=== PATIENT | male | born 1985 | race Two or more races ===

== ENCOUNTER 2024-11-18 19:32 | Emergency (ER) | payer MEDICAID, SELFPAY ==
[2024-11-18 19:34] VITALS: BMI 29.0
[2024-11-18 19:53] VITALS: BP 145/89; PULSE 103; RESP 20; TEMP 37; O2SAT 98
--- NOTE | 2024-11-18 19:58 | XR_ITS ---
Examination: CT brain head without contrast. 2-D sagittal coronal reconstructions Date and time of exam:November 18, 20242007 hrs. Indications: Facial numbness blurred vision beginning 3 days ago CTDI: vol (mGy):53.9 DLP: (mGycm):1048 Technique: Multiple CT axial sections of the brain have been obtained, 5 mm slice thickness. Contrast has not been administered. 2-D sagittal, coronal reconstructions have been obtained Low dose protocols were performed. One or more of the following dose reduction techniques were used; automated exposure control, adjustment of the mA and/or KV according to patient size, use of iterative reconstruction technique. Findings: No significant ventricular enlargement. Intra-axial or extra-axial hemorrhage density is not seen. No mass effect or midline shift Basal cisterns are not remarkable. Fourth ventricle is midline. Cranial vault intact. Impression: Negative for acute hemorrhage, mass effect or midline shift As clinically warranted, brain MRI follow-up would best assess for demyelinating disease, acute ischemic change
--- NOTE | 2024-11-18 20:05 | EDNOTE_ITS ---
ED Eye Problem RME/HPI General Chief complaint: Eye Problems Stated complaint: LEFT EYE BURNING X2 DAYS, LEFT SIDE FACE NUMB Time Seen by Provider: 11/18/24 20:00 Source: patient Arrival date/time: 11/18/24 19:32 39-year-old male with no known medical history presents to the emergency room with a chief complaint of left eye burning, left eye numbness, left facial numbness x 2 days. Mode of arrival: ambulatory Limitations: no limitations Related Data Previous Rx's ?Medication ?Instructions ?Recorded cephalexin 500 mg capsule (Keflex) 2 cap PO BID Infection #28 caps 11/16/17 ibuprofen 600 mg tablet 1 tab PO Q8HR PRN pain #30 tabs 11/16/17 ibuprofen 800 mg tablet 800 mg PO TID PRN pain #30 tabs 04/05/21 cyclobenzaprine 10 mg tablet 10 mg PO TID PRN muscle spasm #30 03/10/23 tabs dexamethasone 6 mg tablet 6 mg PO QDAY #7 tabs 03/10/23 ibuprofen 600 mg tablet 600 mg PO TID PRN pain #30 tabs 03/10/23 dextran 70-hypromellose eye drops 1 drp ophthalmic (eye) Q60M PRN 11/18/24 in a dropperette (Artificial Tears dry eye(s) #32 ea (PF) drops in a dropperette) prednisone 20 mg tablet 80 mg PO QDAY 6 days #24 tabs 11/18/24 valacyclovir 500 mg tablet 1,000 mg (2 x 500 mg) PO TID 7 11/18/24 days #42 tabs Allergies Allergy/AdvReac Type Severity Reaction Status Date / Time No Known Allergies Allergy Verified 04/05/21 09:33 ED Exam General Limitations: Present no limitations Course Quality Measures none Orders Category Date Time Status CT head/brain wo con Stat Exams 11/18/24 19:58 Completed Artificial Tears Med 11/18/24 21:14 Discontinued See Dose Instructions LEFT EYE X1 ONE predniSONE Med 11/18/24 21:06 Discontinued 80 mg PO X1 ONE Vital Signs Vital signs: Vital Signs Temperature 98.6 F 11/18/24 19:53 Pulse Rate 103 H 11/18/24 19:53 Respiratory Rate 20 11/18/24 19:53 Blood Pressure 145/89 H 11/18/24 19:53 Pulse Oximetry (%) 98 11/18/24 19:53 Oxygen Delivery Method Room Air 11/18/24 19:53 Eye MDM Narrative MDM Narrative:: 39-year-old male with no known medical history presents to the emergency room with a chief complaint of left eye burning, left eye numbness, left facial numbness x 2 days. Clinically the patient appears nontoxic in no apparent distress. Physical examination shows a normal neurological exam. Pupils are PERRLA EOMs are intact the patient is a GCS of 15 alert and oriented the patient is only having numbness to his eyes and face there is no numbness or deficits to any lower extremity or upper extremity. Physical examination shows left-sided facial droop. The patient is having difficulty being able to wrinkle the forehead on the affected side. When the patient blinks his left eye does not fully close. The patient has a nonsymmetric smile and is barely able to pucker his lips. Patient denies any taste disturbances or ear pain. Using the House- Brackman scale the patient is given a grade 2 mild severity. 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 A CT of the head and brain was completed and was negative for any acute hemorrhage mass effect or midline shift steroids were given as well as antivirals and the patient was educated to follow-up with his primary care provider and return to the emergency room for any evidence of worsening signs or symptoms Patient data External records reviewed:: [facility] previous records Clinical information provided by:: patient Social determinants that could affect healthcare access:: none Patient has the following chronic illnesses:: No chronic illness How is presenting disease/condition affected by chronic disease/condition?: no chronic disease Evaluation data The following diagnostics were reviewed and interpreted by me:: lab results and radiology exam(s) Lab and/or radiology exams considered but not ordered:: Labs and radiology exams considered and ordered Interpretation Summary: CT head and brain-Findings: No significant ventricular enlargement. Intra-axial or extra-axial hemorrhage density is not seen. No mass effect or midline shift Basal cisterns are not remarkable. Fourth ventricle is midline. Cranial vault intact. Impression: Negative for acute hemorrhage, mass effect or midline shift As clinically warranted, brain MRI follow-up would best assess for demyelinating disease, acute ischemic change Medications / Prescriptions Medications or Prescriptions considered but not ordered:: Medication given Medication administrations:: Medication Administration History Discontinued Medications Artificial Tears (Artificial Tears 225 Drop/15 Ml Btl) 0 drop LEFT EYE X1 ONE Stop: 11/18/24 21:15 Last Admin: 11/18/24 21:26 Dose: 1 drop Documented By: OA Prednisone (Prednisone 20 Mg Tablet) 80 mg PO X1 ONE Stop: 11/18/24 21:07 Last Admin: 11/18/24 21:27 Dose: 80 mg Documented By: OA Medication given Consultations Consultation(s) initiated? (list below): No Diagnosis Eye Problem Differential Diagnosis: subconjunctival hemorrhage and other (Argueta's palsy) Most likely diagnosis given after review of the tests above:: Argueta's palsy Admission Indicated Admission indicated?: not indicated Admission Request Was there a request for admission?: No Disposition Plan Disposition Plan: Discharge Discharge Attestation Discharge Attestation: The patient and all family members were given an opportunity to ask questions and understood the discharge instructions. Discharge instructions specifically effects, indications for sooner follow up or return to the emergency department, and the expected course of current diagnosis. Patient condition: Stable Discharge Plan Plan Patient Disposition: HOME (Self Care) Disposition Comment: stable Prescriptions/Referrals Prescriptions/Med Rec: New prednisone 20 mg tablet 80 mg PO QDAY 6 Days Qty: 24 0RF Taper: Prednisone Taper 20 mg DAILY for 2 Days and 0 Hour 10 mg DAILY for 2 Days and 0 Hour 5 mg DAILY for 7 Days and 0 Hour valacyclovir 500 mg tablet 1,000 mg PO TID 7 Days Qty: 42 0RF Artificial Tears (PF) Dropperette 1 drp ophthalmic (eye) Q60M PRN (Reason: dry eye(s)) Qty: 32 0RF No Action cephalexin [Keflex] 500 MG capsule 2 cap PO BID Qty: 28 0RF Rx Instructions: use for 7 days ibuprofen 600 MG tablet 1 tab PO Q8HR PRN (Reason: pain) Qty: 30 0RF ibuprofen 800 mg tablet 800 mg PO TID PRN (Reason: pain) Qty: 30 0RF dexamethasone 6 mg tablet 6 mg PO QDAY Qty: 7 0RF cyclobenzaprine 10 mg tablet 10 mg PO TID PRN (Reason: muscle spasm) Qty: 30 0RF ibuprofen 600 mg tablet 600 mg PO TID PRN (Reason: pain) Qty: 30 0RF Referrals: Go Peres MD [Primary Care Provider] - In 1 week Problem List Clinical Impression: Facial paralysis/[place] palsy Patient/Caregiver Discharge Instructions Education Materials: ED Argueta's Palsy Print Language: Bulgarian Stand Alone Forms: Mariely Award Info., Patient Portal Info Letter
[2024-11-18] MEDS: Artificial Tears 225 DROP/15 ML BTL LEFT EYE (21:26)
[2024-11-18] MEDS: predniSONE 20 MG TABLET 80 MG PO (21:27)
== END 2024-11-18 22:24 | disposition home or self-care (01) ==
PROVIDERS: Emergency Provider Emergency Medicine; PCP Family Medicine
DX: G51.0 Bell's palsy (principal)
CPT/HCPCS: 70450; 99284; J7512; A9270